=== PATIENT | male | born 1980 | race Caucasian/White ===

== ENCOUNTER 2016-08-22 03:09 | Emergency (ER) | payer MEDICAID ==
[~2016-08-22] VITALS: Ht 165.1 cm; Wt 68.0 kg
[2016-08-22 05:51] VITALS: BP 164/111
[2016-08-22] MEDS ORDERED: KETOROLAC TROMETH 60MG/2ML VIAL IM ONE (06:00)
[2016-08-22] MEDS ORDERED: KETOROLAC TROMETH 30 MG/ML 1ML VIAL IV ONE (06:00)
[2016-08-22] MEDS ORDERED: HYDROcodone-ACET 10/325MG TAB PO ONE (06:00)
== END 2016-08-22 05:11 | disposition home or self-care (01) ==
LOC: ER 03:09
DX: M54.2 Cervicalgia (principal); F41.9 Anxiety disorder, unspecified
CPT/HCPCS: 96372; 99283; J1885